=== PATIENT | male | born 1975 | race Caucasian/White ===

== ENCOUNTER 2016-09-16 01:20 | Emergency (ER) | payer OTHER ==
[~2016-09-16] VITALS: Ht 175.3 cm; Wt 128.8 kg
[~2016-09-16 01:20] MED LIST: IBUP-1105 PO
[2016-09-16 01:25] VITALS: Ht 175.3 cm; Wt 128.8 kg
[2016-09-16] MEDS ORDERED: ALBUT/IPRATROP 3MG/0.5MG NEB 3 ML VIAL INH STA (01:30)
[2016-09-16] MEDS ORDERED: DEXAMETHASONE SOD INJ 10 MG/ML VIAL IV ONE (01:30)
[2016-09-16 01:45] VITALS: O2SAT 96
[2016-09-16 01:49] LABS: BASO % 0.5 %; BASO ABS # 0.04 K/uL (0-0.2); COMPLETE YES; EOS % 4.3 %; HEMATOCRIT 43.6 % (42-52); IG% 0.3 %; LYMPH % 30.6 %; LYMPH ABS # 2.37 K/uL (1.2-3.4); MEAN CELL VOLUME 89.7 fL (80-100); MEAN CORPUSCULAR HEMOGLOBIN 31.3 pg (25-34); MEAN CORPUSCULAR HGB CONC 34.9 g/dl (32-36); MEAN PLATELET VOLUME 11.2 fL (7.4-10.4); MONO % 8.1 %; NEUT % 56.2 %; PLATELET COUNT 168 K/uL (130-400); RED BLOOD COUNT 4.86 M/uL (4.7-6.1); WHITE BLOOD COUNT 7.74 K/uL (4.8-10.8)
[2016-09-16 02:02] LABS: POINT OF CARE TROPONIN I < 0.030 ng/ml (0-0.045)
[2016-09-16 02:06] LABS: ALT/SGPT 21 U/L (12-78); AST/SGOT 12 U/L (15-37); BLOOD UREA NITROGEN 13 mg/dl (7-18); BUN/CREATININE RATIO 12.1 (10-20); CALCIUM 7.9 mg/dl (8.5-10.1); CARBON DIOXIDE 25 mmol/L (21-32); CHLORIDE 106 mmol/L (98-107); GLUCOSE 127 mg/dl (70-99); POTASSIUM 3.7 mmol/L (3.5-5.1); SODIUM 140 mmol/L (136-145)
[2016-09-16 02:11] LABS: ALKALINE PHOSPHATASE 66 U/L (45-117)
[2016-09-16] MEDS ORDERED: ALBUTEROL HFA 8 GM INHALER INH STA (02:39)
--- NOTE | 2016-09-16 04:18 | EMERGENCY ROOM VISIT NOTE ---
History First contact with patient: :22 Chief Complaint: RESPIRATORY PROBLEMS Stated Complaint: CHEST PAIN Nursing Triage Summary: c/o pain in left chest with inspiration. pt also reports intermittent wheezing. History of Present Illness The patient is a 40 year old male who presents to the Emergency Room with complaints of chest pain, shortness of breath, cough and wheezing for the past day. Patient does smoke. He does a lot of driving. Family history of blood clots. No family history of heart disease. Patient does not routinely see a family care doctor. Patient states his legs are chronically swollen. Patient states he's had a previous history chest pain. He has not been sick recently. Patient denies constant chest pain, radiating pain, productive cough, abdominal pain, leg swelling that has increased, recent travel. No known clotting disorder. No prior stress test or echo. Review of Systems See HPI for pertinent positives & negatives. A total of 10 systems reviewed and were otherwise negative. Past Medical/Surgical History None Social History Smoking Status: Current Every Day Smoker Alcohol Use: none Drug Use: none Current/Historical Medications Scheduled PRN Ibuprofen (Ibuprofen), 600 MG PO BID PRN for Pain Allergies Coded Allergies: No Known Allergies (Unverified , 09/16/16) Physical Exam Vital Signs Date Time Temp Pulse Resp B/P (MAP) Pulse Ox O2 Delivery O2 Flow Rate FiO2 09/16/16 03:00 67 18 146/82 95 Room Air 09/16/16 01:45 96 Room Air 09/16/16 01:45 96 Room Air 09/16/16 01:40 80 09/16/16 01:25 98 Room Air 09/16/16 01:25 86 20 149/86 99 Room Air Physical Exam VITALS: Vitals are noted on the nurse's note and reviewed by myself. Vital signs hypertensive. GENERAL: Pleasant male speaking in full sentences, in no acute distress, nondiaphoretic, well-developed well-nourished. SKIN: The skin was without rashes, erythema, edema, or bruising. There is no tenting of the skin. Capillary reflex less than 2 seconds. HEAD: Normocephalic atraumatic. EARS: External auditory canals clear, tympanic membranes pearly gonzalez without erythema or effusion bilaterally. EYES: Pupils equal round and reactive to light and accommodation. Conjunctivae without injection, sclerae without icterus. Extraocular movements intact. NOSE: Patent, turbinates without inflammation or discharge. MOUTH: Mucous membranes moist. Pharynx without erythema or exudate. Uvula midline. Airway patent. Tongue does not deviate. NECK: Supple without nuchal rigidity. No lymphadenopathy. No thyromegaly. Cervical spine is nontender. No JVD. HEART: Regular rate and rhythm without murmurs gallops or rubs. LUNGS: Mild diffuse end expiratory wheezes, without rales or rhonchi. No dullness to percussion. No retractions or accessory muscle use. ABDOMEN: Positive bowel sounds x 4. Normal tympanic percussion. Soft, protuberant, obese, nontender, without masses or organomegaly. Suresh sign negative. No guarding or rebound tenderness. MUSCULOSKELETAL: No muscle atrophy, erythema, noted. +1 pitting edema bilaterally up to the mid tib-fib NEURO: Patient was alert and oriented to person place and time. Normal sensation to light and sharp touch. No focal neurological deficits. Medical Decision & Procedures Laboratory Results 09/16/16 01:35 Red Blood Count 4.86, Mean Corpuscular Volume 89.7, Mean Corpuscular Hemoglobin 31.3, Mean Corpuscular Hemoglobin Concent 34.9, Mean Platelet Volume 11.2, Neutrophils (%) (Auto) 56.2, Lymphocytes (%) (Auto) 30.6, Monocytes (%) (Auto) 8.1, Eosinophils (%) (Auto) 4.3, Basophils (%) (Auto) 0.5, Neutrophils # (Auto) 4.35, Lymphocytes # (Auto) 2.37, Monocytes # (Auto) 0.63, Eosinophils # (Auto) 0.33, Basophils # (Auto) 0.04 09/16/16 01:35 Test 09/16/16 01:35 09/16/16 01:42 09/16/16 03:49 White Blood Count 7.74 K/uL (4.8-10.8) Red Blood Count 4.86 M/uL (4.7-6.1) Hemoglobin 15.2 g/dL (14.0-18.0) Hematocrit 43.6 % (42-52) Mean Corpuscular Volume 89.7 fL (80-100) Mean Corpuscular Hemoglobin 31.3 pg (25-34) Mean Corpuscular Hemoglobin Concent 34.9 g/dl (32-36) Platelet Count 168 K/uL (130-400) Mean Platelet Volume 11.2 fL (7.4-10.4) Neutrophils (%) (Auto) 56.2 % Lymphocytes (%) (Auto) 30.6 % Monocytes (%) (Auto) 8.1 % Eosinophils (%) (Auto) 4.3 % Basophils (%) (Auto) 0.5 % Neutrophils # (Auto) 4.35 K/uL (1.4-6.5) Lymphocytes # (Auto) 2.37 K/uL (1.2-3.4) Monocytes # (Auto) 0.63 K/uL (0.11-0.59) Eosinophils # (Auto) 0.33 K/uL (0-0.5) Basophils # (Auto) 0.04 K/uL (0-0.2) RDW Standard Deviation 44.1 fL (36.4-46.3) RDW Coefficient of Variation 13.4 % (11.5-14.5) Immature Granulocyte % (Auto) 0.3 % Immature Granulocyte # (Auto) 0.02 K/uL (0.00-0.02) Anion Gap 9.0 mmol/L (3-11) Est Creatinine Clear Calc Drug Dose 121.0 ml/min Estimated GFR () 98.2 Estimated GFR (Non- 84.7 BUN/Creatinine Ratio 12.1 (10-20) Calcium Level 7.9 mg/dl (8.5-10.1) Total Bilirubin 0.4 mg/dl (0.2-1) Direct Bilirubin < 0.1 mg/dl (0-0.2) Aspartate Amino Transf (AST/SGOT) 12 U/L (15-37) Alanine Aminotransferase (ALT/SGPT) 21 U/L (12-78) Alkaline Phosphatase 66 U/L (45-117) Troponin I < 0.015 ng/ml (0-0.045) Total Protein 7.1 gm/dl (6.4-8.2) Albumin 3.5 gm/dl (3.4-5.0) Bedside D-Dimer 261 ng/mlFEU (0-450) Bedside Troponin I < 0.030 ng/ml (0-0.045) Medications Administered Medications (Trade) Dose Ordered Sig/Richy Route Start Time Stop Time Status Last Admin Dose Admin Albuterol/ Ipratropium (Duoneb) 3 ml NOW STAT INH 09/16/16 01:30 09/16/16 01:31 DC 09/16/16 01:48 3 ML Dexamethasone Sodium Phosphate (Decadron Inj) 10 mg NOW ONCE IV 09/16/16 01:30 09/16/16 01:31 DC 09/16/16 01:48 10 MG Albuterol (Ventolin Hfa Inhaler) 2 puffs ONE STAT INH 09/16/16 02:39 09/16/16 02:40 DC 09/16/16 03:40 2 PUFFS ED Course Prior records/ancillary studies reviewed. Triage Nursing notes reviewed. The patient's history was concerning for chest pain. Differential diagnosis: Etiologies such as cardiac ischemia, aortic dissection, pulmonary embolism, pneumonia, pneumothorax, musculoskeletal, infections, pericarditis, myocarditis , esophageal rupture, gastrointestinal, as well as others were entertained. Physical examination: As above. ER treatment provided: Nebulizer, steroids On reassessment the patient felt better. Diagnostic interpretation by me: The electrocardiogram was negative for pathologic change. Home sinus, normal intervals, no acute ST-T wave changes. Impression normal sinus rhythm interpreted by myself The labs revealed 2 negative troponins that are 2 hours apart. Negative d-dimer Imaging studies: Chest x-ray no acute consolidation, pneumothorax or free air per my interpretation Exam and history seem consistent with bronchitis with pleurisy. Patient felt much better after being medicated as above. No pneumonia. Negative EKG. Negative troponin 2. He was advised take medications as directed and encouraged to quit smoking. He is advised to follow-up family care in a few days or here in the ER sooner for chest pain, difficulty breathing, worsening signs or symptoms or as needed. By the evaluation outlined above emergent etiologies such as cardiac ischemia, aortic dissection, pulmonary embolism, pneumonia, pneumothorax, pericarditis, myocarditis, gastrointestinal, as well as others were deemed relatively unlikely. The pt informed about the findings as listed above. All questions were answered and pleased with the treatment. Return instructions were outlined and the patient was discharged in stable condition. Outpatient prescription management: Prednisone Referral: The patient was referred back to primary care physician for follow-up in 2 to 3 days for a recheck of the current condition. Case reviewed with my attending. Medical Decision As above Patient was found to have elevated blood pressure and was referred to their family doctor for recheck and further treatment. Impression Primary Impression: Acute bronchitis Additional Impression: Pleurisy Departure Information Dispostion Home / Self-Care Condition GOOD Referrals No Doctor, Assigned (PCP) Patient Instructions My [facility] Additional Instructions Albuterol Inhaler: Take 2 puffs four times daily for five days, then as needed. Prednisone 50mg: Once daily until the prescription is finished. It is best to take this earlier in the day as some patients note occasional difficulty falling asleep when taken in the late evening. Acetaminophen(Tylenol) may be used for fever or pain. Use 1000mg every six hours as needed. Avoid using more than 3000mg in a 24 hour period. (AND/OR) Ibuprofen(Motrin, Advil) may be used for fever or pain. Use 600mg every six hours as needed. Take with food. Avoid using more than 2400mg in a 24 hour period. Do not use 2400mg per day for more than three consecutive days without physician direction. Prolonged inappropriate use can lead to stomach upset or ulcers. Rest and drink plenty of fluids. Avoid smoke/smoking, fumes, dust, or any triggers in the past that may have affected your breathing. Continue current medications. Return to the ER for chest pain, difficulty breathing, fevers, vomiting, worsening of your condition, or as needed. Follow up with your primary physician this week for a recheck of your current condition. Problem Qualifiers Primary Impression: Acute bronchitis Bronchitis organism: unspecified organism Qualified Codes: J20.9 - Acute bronchitis, unspecified
[2016-09-16] MEDS ORDERED: PRED50TA PO (04:19)
[2016-09-16 04:31] VITALS: BP 123/71; PULSE 70; O2SAT 96
--- NOTE | 2016-09-16 08:14 | DIAGNOSTIC IMAGING REPORT ---
CHEST ONE VIEW PORTABLE CLINICAL HISTORY: Left-sided chest pain. Wheezing. COMPARISON STUDY: No previous studies for comparison. FINDINGS: Lung volumes are normal. There is no pneumothorax or pleural effusion. No consolidation is identified. Pulmonary vascularity is normal. Cardiac size is at the upper limits of normal. Minimal left basilar opacity is suggestive of atelectasis. IMPRESSION: No acute cardiopulmonary findings. Electronically signed by: Danish Licea M.D. 09/16/2016 8:12 AM Dictated Date/Time: 09/16/2016 8:11 AM
== END 2016-09-16 04:33 | disposition home or self-care (01) ==
LOC: C.EDB 01:21
DX: J20.9 Acute bronchitis, unspecified (principal); R09.1 Pleurisy; R60.0 Localized edema; F17.200 Nicotine dependence, unspecified, uncomplicated; Z82.49 Family history of ischemic heart disease and other diseases of the circulatory system

== ENCOUNTER 2017-06-03 17:01 | Emergency (ER) | payer SELFPAY ==
[~2017-06-03] VITALS: Ht 175.3 cm; Wt 134.0 kg
[2017-06-03 17:04] VITALS: BP 125/81; PULSE 84; TEMP 37; O2SAT 98; Ht 175.3 cm; Wt 134.0 kg
[2017-06-03 17:34] LABS: BASO % 0.5 %; BASO ABS # 0.04 K/uL (0-0.2); EOS % 3.9 %; EOS ABS # 0.31 K/uL (0-0.5); HEMATOCRIT 42.3 % (42-52); HEMOGLOBIN 14.7 g/dL (14.0-18.0); IG# 0.04 K/uL (0.00-0.02); LYMPH % 30.9 %; LYMPH ABS # 2.48 K/uL (1.2-3.4); MEAN CELL VOLUME 89.4 fL (80-100); MEAN CORPUSCULAR HEMOGLOBIN 31.1 pg (25-34); MEAN CORPUSCULAR HGB CONC 34.8 g/dl (32-36); MEAN PLATELET VOLUME 10.8 fL (7.4-10.4); MONO % 9.6 %; MONO ABS # 0.77 K/uL (0.11-0.59); NEUT % 54.6 %; NEUT ABS # 4.39 K/uL (1.4-6.5); PLATELET COUNT 153 K/uL (130-400); RED CELL DISTRIBUTION WIDTH CV 13.6 % (11.5-14.5); RED CELL DISTRIBUTION WIDTH SD 44.8 fL (36.4-46.3); WHITE BLOOD COUNT 8.03 K/uL (4.8-10.8)
[2017-06-03 18:00] LABS: ALBUMIN 3.4 gm/dl (3.4-5.0); ALKALINE PHOSPHATASE 66 U/L (45-117); ALT/SGPT 28 U/L (12-78); BLOOD UREA NITROGEN 12 mg/dl (7-18); CALCIUM 8.3 mg/dl (8.5-10.1); CARBON DIOXIDE 28 mmol/L (21-32); CREATININE 1.15 mg/dl (0.60-1.40); GLUCOSE 81 mg/dl (70-99); LIPASE 235 U/L (73-393); TOTAL PROTEIN 7.3 gm/dl (6.4-8.2)
[2017-06-03 18:06] LABS: SODIUM 139 mmol/L (136-145)
[2017-06-03 18:11] LABS: AST/SGOT 15 U/L (15-37)
--- NOTE | 2017-06-03 18:18 | DIAGNOSTIC IMAGING REPORT ---
CT OF THE ABDOMEN AND PELVIS WITHOUT CONTRAST, STONE PROTOCOL CLINICAL HISTORY: Right-sided abdominal pain. COMPARISON STUDY: None. TECHNIQUE: Helical axial images of the abdomen and pelvis were obtained without IV or oral contrast according to renal stone protocol. A dose lowering technique was utilized adhering to the principles of ALARA. FINDINGS: Groundglass opacities within the lungs favor atelectasis. There is no pneumatosis, free air or portal venous gas. No renal, ureteral or bladder calculi are present. There is no hydronephrosis or hydroureter. Evaluation of the remainder of the abdomen and pelvis is suboptimal on this unenhanced exam. Unenhanced images of the liver, adrenal glands and pancreas are normal. There is borderline splenomegaly. There is no evidence for a bowel obstruction. The appendix is normal. There is colonic diverticulosis without evidence for acute diverticulitis. There are fat-containing bilateral inguinal hernias. There is no lymphadenopathy. There are no suspicious osseous lesions. IMPRESSION: 1. No urinary calculi or hydronephrosis. 2. No acute process within the abdomen or pelvis on unenhanced exam. Normal appendix. 3. Colonic diverticulosis without evidence for acute diverticulitis. 4. Fat-containing bilateral inguinal hernias. Electronically signed by: Danish Licea M.D. 06/03/2017 6:17 PM Dictated Date/Time: 06/03/2017 6:09 PM
--- NOTE | 2017-06-03 19:26 | EMERGENCY ROOM VISIT NOTE ---
History Report prepared by Fco: Richa Vasquez Under the Supervision of: Dr. Justin Cardozo M.D. First contact with patient: 17:06 Chief Complaint: GROIN PAIN Stated Complaint: PAIN IN GROIN AND STOMACH AREA History of Present Illness The patient is a 41 year old male who presents to the Emergency Room with complaints of intermittent right sided groin pain beginning last night. The patient rates his pain as a 10/10. He also notes some abdominal pain. He reports his pain is relieved when he is standing and worsens when he is driving. The patient states he has had pain like this before and from a hernia. The patient states he was at work lifting things when his pain started. Pt denies LOC, headache, fevers, chills, diaphoresis, visual changes, neck pain, chest pain, breathing difficulties, nausea, vomiting, back pain, melena, hematochezia, difficulty urinating, urinary symptoms, numbness, weakness, lymphadenopathy, rash, or other complaints. Source of History: patient Onset: last night Position: other (groin ) Symptom Intensity: 10/10 Quality: other (pain) Timing: intermittent Associated Symptoms: + abdominal pain Review of Systems See HPI for pertinent positives and negatives. A total of ten systems were reviewed and were otherwise negative. Past Medical & Surgical Medical Problems: (1) Cellulitis (2) Superficial thrombophlebitis Family History Groin hernia Social History Smoking Status: Current Every Day Smoker Alcohol Use: none Drug Use: none Occupation Status: employed Current/Historical Medications Scheduled Ciprofloxacin Hcl (Cipro), 500 MG PO BID Allergies Coded Allergies: No Known Allergies (Unverified , 09/16/16) Physical Exam Vital Signs Date Time Temp Pulse Resp B/P (MAP) Pulse Ox O2 Delivery O2 Flow Rate FiO2 06/03/17 17:04 37.0 84 16 125/81 98 Room Air Physical Exam GENERAL: Awake, alert, well-appearing, in no distress HENT: Normocephalic, atraumatic. Oropharynx unremarkable. EYES: Normal conjunctiva. Sclera non-icteric. NECK: Supple. No nuchal rigidity. FROM. No masses. RESPIRATORY: Clear to auscultation. No wheezes. CARDIAC: Normal rate. Normal rhythm. No murmurs. No rubs. Extremities warm and well perfused. Pulses equal. No JVD. GI: Soft, non-distended. RLQ tenderness to palpation. Right inguinal tenderness. No rebound or guarding. No masses. RECTAL: Deferred. MUSCULOSKELETAL: Atraumatic. Chest examination reveals no tenderness. The back is symmetrical on inspection without obvious abnormality. There is no CVA tenderness to palpation. No joint edema. LOWER EXTREMITIES: Calves are equal size bilaterally and non-tender. No edema. No discoloration. NEURO: Normal sensorium. No sensory or motor deficits noted. SKIN: No rash or jaundice noted. : Normal male, no swelling, with right epididymal tenderness. Medical Decision & Procedures ER Provider Diagnostic Interpretation: Radiology results as stated below per my review and radiologist interpretation: CT OF THE ABDOMEN AND PELVIS WITHOUT CONTRAST, STONE PROTOCOL FINDINGS: Groundglass opacities within the lungs favor atelectasis. There is no pneumatosis, free air or portal venous gas. No renal, ureteral or bladder calculi are present. There is no hydronephrosis or hydroureter. Evaluation of the remainder of the abdomen and pelvis is suboptimal on this unenhanced exam. Unenhanced images of the liver, adrenal glands and pancreas are normal. There is borderline splenomegaly. There is no evidence for a bowel obstruction. The appendix is normal. There is colonic diverticulosis without evidence for acute diverticulitis. There are fat-containing bilateral inguinal hernias. There is no lymphadenopathy. There are no suspicious osseous lesions. IMPRESSION: 1. No urinary calculi or hydronephrosis. 2. No acute process within the abdomen or pelvis on unenhanced exam. Normal appendix. 3. Colonic diverticulosis without evidence for acute diverticulitis. 4. Fat-containing bilateral inguinal hernias. Electronically signed by: Danish Licea M.D. SCROTAL ULTRASOUND FINDINGS: The right testis measures 4.6 x 2.1 x 3.1 cm and the left measures 4.4 x 2 x 3 cm. There is no testicular mass. Color flow within each testis is symmetric. A few microliths within the right testis are noted. There is no sonographic evidence of epididymitis. IMPRESSION: 1. No evidence of testicular torsion. No testicular mass. 2. No sonographic evidence of epididymitis. Electronically signed by: Danish Licea M.D. Laboratory Results 06/03/17 17:24 Red Blood Count 4.73, Mean Corpuscular Volume 89.4, Mean Corpuscular Hemoglobin 31.1, Mean Corpuscular Hemoglobin Concent 34.8, Mean Platelet Volume 10.8, Neutrophils (%) (Auto) 54.6, Lymphocytes (%) (Auto) 30.9, Monocytes (%) (Auto) 9.6, Eosinophils (%) (Auto) 3.9, Basophils (%) (Auto) 0.5, Neutrophils # (Auto) 4.39, Lymphocytes # (Auto) 2.48, Monocytes # (Auto) 0.77, Eosinophils # (Auto) 0.31, Basophils # (Auto) 0.04 06/03/17 17:24 Test 06/03/17 17:24 06/03/17 18:45 White Blood Count 8.03 K/uL (4.8-10.8) Red Blood Count 4.73 M/uL (4.7-6.1) Hemoglobin 14.7 g/dL (14.0-18.0) Hematocrit 42.3 % (42-52) Mean Corpuscular Volume 89.4 fL (80-100) Mean Corpuscular Hemoglobin 31.1 pg (25-34) Mean Corpuscular Hemoglobin Concent 34.8 g/dl (32-36) Platelet Count 153 K/uL (130-400) Mean Platelet Volume 10.8 fL (7.4-10.4) Neutrophils (%) (Auto) 54.6 % Lymphocytes (%) (Auto) 30.9 % Monocytes (%) (Auto) 9.6 % Eosinophils (%) (Auto) 3.9 % Basophils (%) (Auto) 0.5 % Neutrophils # (Auto) 4.39 K/uL (1.4-6.5) Lymphocytes # (Auto) 2.48 K/uL (1.2-3.4) Monocytes # (Auto) 0.77 K/uL (0.11-0.59) Eosinophils # (Auto) 0.31 K/uL (0-0.5) Basophils # (Auto) 0.04 K/uL (0-0.2) RDW Standard Deviation 44.8 fL (36.4-46.3) RDW Coefficient of Variation 13.6 % (11.5-14.5) Immature Granulocyte % (Auto) 0.5 % Immature Granulocyte # (Auto) 0.04 K/uL (0.00-0.02) Anion Gap 8.0 mmol/L (3-11) Est Creatinine Clear Calc Drug Dose 117.2 ml/min Estimated GFR () 92.4 Estimated GFR (Non- 79.7 BUN/Creatinine Ratio 10.2 (10-20) Calcium Level 8.3 mg/dl (8.5-10.1) Total Bilirubin 0.3 mg/dl (0.2-1) Direct Bilirubin < 0.1 mg/dl (0-0.2) Aspartate Amino Transf (AST/SGOT) 15 U/L (15-37) Alanine Aminotransferase (ALT/SGPT) 28 U/L (12-78) Alkaline Phosphatase 66 U/L (45-117) Total Protein 7.3 gm/dl (6.4-8.2) Albumin 3.4 gm/dl (3.4-5.0) Lipase 235 U/L (73-393) Urine Color YELLOW Urine Appearance CLOUDY (CLEAR) Urine pH 7.0 (4.5-7.5) Urine Specific [place] 1.024 (1.000-1.030) Urine Protein NEG (NEG) Urine Glucose (UA) NEG (NEG) Urine Ketones NEG (NEG) Urine Occult Blood NEG (NEG) Urine Nitrite NEG (NEG) Urine Bilirubin NEG (NEG) Urine Urobilinogen NEG (NEG) Urine Leukocyte Esterase NEG (NEG) Urine WBC (Auto) 0 /hpf (0-5) Urine RBC (Auto) 0-4 /hpf (0-4) Urine Hyaline Casts (Auto) 0 /lpf (0-5) Urine Epithelial Cells (Auto) 5-10 /lpf (0-5) Urine Bacteria (Auto) NEG (NEG) Laboratory results reviewed by me Medications Administered Medications (Trade) Dose Ordered Sig/Richy Route Start Time Stop Time Status Last Admin Dose Admin Ciprofloxacin (Cipro 500MG Home Pack) 1 homepack UD ONCE PO 06/03/17 21:00 06/03/17 21:01 DC 06/03/17 21:00 1 HOMEPACK ED Course 1712: The patient was evaluated in room B7. A complete history and physical exam was performed. 5: I updated the patient on his test results. 2099: Ordered Ciprofloxacin 1 homepack PO. 2102: The patient is resting comfortably. 2110: I reevaluated the patient. Discussed results and discharge instructions: He verbalized understanding and agreement. The patient is ready for discharge. Medical Decision Triage Nursing notes reviewed. The patient's presentation and history were concerning for right groin and abdominal pain. Etiologies such as Hernia, testicular pathology, renal colic, appendicitis, diverticulitis, obstruction, inflammatory bowel disease, PUD, biliary pathology , pancreatitis, mesenteric ischemia, aortic pathology, infections, genitourinary , UTI, perforated viscus, as well as others were entertained. The patient was evaluated. Clinically he was doing well but did have tenderness in the right inguinal and right lower quadrant. His right epididymis was tender as well. He notes the pain has been kind of intermittent and was concerned about hernia. There is no significant hernia present on physical examination. Declined analgesia. CT imaging was performed as above. Bilateral fat-containing inguinal hernias were noted. No intercostal pathology noted. His blood work was unremarkable. Urinalysis performed. Testicular ultrasound performed. No evidence of torsion or mass noted on ultrasound. Clinically the patient has epididymitis. He will be treated with Cipro. Tympanic given. Prescription sent to his pharmacy. He does have bilateral fat- containing inguinal containing hernias. He will be referred to general surgery. There is no evidence of incarceration at this time. If he worsens in any way he will be back. I gave my usual and customary discussion regarding this issue. By the evaluation outlined above other emergent etiologies such as those listed in the differential, as well as others, were deemed relatively unlikely. The patient was educated about the findings as listed above. All questions were answered and the patient was pleased with the treatment. Return instructions were outlined and the patient was discharged in stable condition. The patient was referred to PCP and Gen. surgery for follow-up for a recheck of the current condition. Medication Reconcilliation Current Medication List: was personally reviewed by me Blood Pressure Screening Patient's blood pressure: Normal blood pressure Impression Primary Impression: Right groin pain Additional Impressions: Bilateral inguinal hernia Epididymitis Scribe Attestation The scribe's documentation has been prepared under my direction and personally reviewed by me in its entirety. I confirm that the note above accurately reflects all work, treatment, procedures, and medical decision making performed by me. Departure Information Dispostion Home / Self-Care Prescriptions Ciprofloxacin Hcl (CIPRO) 500 Mg Tab 500 MG PO BID, #18 TAB Prov: Justin Cardozo MD 06/03/17 Referrals No Doctor, Assigned (PCP) Forms HOME CARE DOCUMENTATION FORM, IMPORTANT VISIT INFORMATION, WORK / SCHOOL INSTRUCTIONS Patient Instructions Epididymitis Dc, Hernia, [facility] Additional Instructions Ciprofloxacin 500mg: Take one pill twice daily for 10 days. All antibiotics can cause diarrhea. If this occurs and you feel worse or it does not resolve in 1-2 days follow up with your doctor or return to the Emergency Department as this could be signs of serious underlying problems. Any medication can cause an allergic reaction or complication, stop the pills immediately and return to the ER for rash, hives, breathing difficulties, tendon pain, tendon injury, or swelling. Ibuprofen(Motrin, Advil) may be used for fever or pain. Use 600mg every six hours as needed. Take with food. Avoid using more than 2400mg in a 24 hour period. Do not use 2400mg per day for more than three consecutive days without physician direction. Prolonged inappropriate use can lead to stomach upset or ulcers. (AND/OR) Acetaminophen(Tylenol) may be used for fever or pain. Use 1000mg every six hours as needed. Avoid using more than 4000mg in a 24 hour period. Rest and drink plenty of fluids as tolerated. Slow sips of water or sports drinks are recommended instead of large amounts all at once. Continue current medications. Once your stomach is settled start with a clear liquid diet (jello, soup broth, etc.) and then advance as tolerated. You should avoid full, heavy meals for about 24 hrs from the time your symptoms resolved. Return to the ER immediately for worsening or persistent abdominal pain, vomiting, fevers, chest pains, difficulty breathing, black or bloody stools, large painful lumps in the groin, worsening of your condition, or as needed. Follow up with your primary physician in 2-3 days for a recheck of your current condition. Follow-up with [facility] general surgery for a hernia evaluation. The number is listed below under Dr. Mota. Problem Qualifiers
--- NOTE | 2017-06-03 19:54 | DIAGNOSTIC IMAGING REPORT ---
SCROTAL ULTRASOUND CLINICAL HISTORY: right sided pain, tender epididymis COMPARISON STUDY: None. TECHNIQUE: Grayscale and color and duplex Doppler sonography of the scrotum was performed. FINDINGS: The right testis measures 4.6 x 2.1 x 3.1 cm and the left measures 4.4 x 2 x 3 cm. There is no testicular mass. Color flow within each testis is symmetric. A few microliths within the right testis are noted. There is no sonographic evidence of epididymitis. IMPRESSION: 1. No evidence of testicular torsion. No testicular mass. 2. No sonographic evidence of epididymitis. Electronically signed by: Danish Licea M.D. 06/03/2017 7:52 PM Dictated Date/Time: 06/03/2017 7:50 PM
[2017-06-03] MEDS ORDERED: CIPROFLOXACIN 500MG HOME PACK PO ONE (21:00)
[2017-06-03] MEDS ORDERED: CIPR-255 PO (21:01)
== END 2017-06-03 21:16 | disposition home or self-care (01) ==
LOC: C.EDB 17:02
DX: K40.20 Bilateral inguinal hernia, without obstruction or gangrene, not specified as recurrent (principal); N45.1 Epididymitis; F17.200 Nicotine dependence, unspecified, uncomplicated; Z87.19 Personal history of other diseases of the digestive system; Z83.79 Family history of other diseases of the digestive system